=== PATIENT | male | born 1985 | race Caucasian/White ===

== ENCOUNTER 2016-12-12 18:23 | Emergency (ER) ==
[2016-12-12 18:23] VITALS: BMI 19.8
[2016-12-12 18:32] VITALS: BP 114/73; TEMP 98.3
--- NOTE | 2016-12-12 18:33 | ED.PDOC ---
General ED Provider: Dr. RICHMOND KATHLEEN JR Chief Complaint: Weakness Stated Complaint: took b/p last pm due to feeling weak and dizzy--b/p was at 130 /49--states that is too low for him--sx subsided somewhat but returned today-- states was not active physically--feels tired and weak at present--has appt to see dr kelley on saturday has had sharp pains in upper arms. [ End ]98.3 73 20 98 % 114/73 Time Seen by Physician: 18:32 Mode of Arrival: Walk-In Information Source: Patient Exam Limitations: No limitations Primary Care Provider: PIPE KELLEY Nursing and Triage Documentation Reviewed and Agree: No Review of Systems - Review Of Systems Constitutional: Reports: Malaise, Weakness Eyes: Reports: No symptoms Ears, Nose, Mouth, Throat: Reports: No symptoms Respiratory: Reports: No symptoms Cardiac: Reports: No symptoms GI: Reports: No symptoms : Reports: No symptoms Musculoskeletal: Reports: Muscle pain Skin: Reports: No symptoms Neurological: Reports: No symptoms Endocrine: Reports: No symptoms Hematologic/Lymphatic: Reports: No symptoms All Other Systems: Other Past Medical History - Past Medical History Previously Healthy: Yes Endocrine: Reports: None Cardiovascular: Reports: None Respiratory: Reports: None Hematological: Reports: None Gastrointestinal: Reports: None Genitourinary: Reports: None Neuro/Psych: Reports: None Musculoskeletal: Reports: None Cancer: Reports: None - Surgical History General Surgical History: Reports: Orthopedic (RT KNEE SURG) - Family History Family History: Reports: Unknown - Social History Smoking Status: Never smoker Hx Substance Use: No Alcohol Screening: None Physical Exam - Physical Exam Appearance: Well-appearing, Thin Ill-appearing: Mild Pain Distress: Mild Eyes: TED, EOMI, Conjunctiva clear ENT: Ears normal, Nose normal, Oropharynx normal Neck: Supple Respiratory: Airway patent, Breath sounds clear, Breath sounds equal, Respirations nonlabored Cardiovascular: RRR, Pulses normal, No rub, No murmur GI/: Soft, Nontender, No masses, Bowel sounds normal, No Organomegaly Musculoskeletal: Normal strength, ROM intact, No edema, No calf tenderness Skin: Warm, Dry, Normal color Neurological: Sensation intact, Motor intact, Reflexes intact, Cranial nerves intact, Alert, Oriented Psychiatric: Affect appropriate, Mood appropriate, Anxious Interpretation - EKG Interpretation Time of EKG #1: 18:40 Rate: Normal Rhythm: Sinus ST Segment: Other (incomplete RBBB) EKG Comparison: No significant changes (compared to 2013) Critical Care Note - Critical Care Note Total Time (mins): 10 Course - Course Hematology/Chemistry: 12/12/16 18:47 12/12/16 18:47 Orders, Labs, Meds: Lab Review 12/12/16 18:47 WBC 8.96 RBC 4.49 L Hgb 13.8 L Hct 39.2 L MCV 87.3 MCH 30.7 MCHC 35.2 RDW Coeff of Maegan 12.5 Plt Count 262 Immature Gran % (Auto) 0.3 Neut % (Auto) 62.6 Lymph % (Auto) 29.9 Richardson % (Auto) 5.9 Eos % (Auto) 0.9 Baso % (Auto) 0.4 Immature Gran # (Auto) 0.0 Neut # 5.6 Lymph # 2.7 Richardson # 0.5 Eos # 0.1 Baso # 0.0 Sodium 141 Potassium 3.3 L Chloride 105 Carbon Dioxide 23 Anion Gap 16.3 BUN 11 Creatinine 1.32 H Estimated GFR (MDRD) 62.00 BUN/Creatinine Ratio 8.33 Glucose 91 Calcium 9.4 Total Bilirubin 0.75 AST 16 ALT 9 L Alkaline Phosphatase 88 Total Creatine Kinase 66 Troponin I < 0.0100 Total Protein 6.9 Albumin 4.3 Globulin 2.6 Albumin/Globulin Ratio 1.65 Orders Category Date Time Status EKG-(ED ONLY) Stat CARDIO 12/12/16 18:33 Completed CBC W/ AUTO DIFF Stat LAB 12/12/16 18:47 Completed COMPREHENSIVE METABOLIC PANEL Stat LAB 12/12/16 18:47 Completed CREATINE KINASE Stat LAB 12/12/16 18:47 Completed TROPONIN I Stat LAB 12/12/16 18:47 Completed Potassium Chloride [K-Dur] MEDS 12/12/16 19:38 Discontinued 40 meq PO ONCE STA CHEST, 2 VIEWS PA & LAT Stat RADS 12/12/16 18:33 Taken Medications Discontinued Medications Generic Name Dose Route Start Last Admin Trade Name Freq PRN Reason Stop Dose Admin Potassium Chloride 40 meq 12/12/16 19:38 K-Dur PO 12/12/16 19:39 ONCE STA Vital Signs: Temp Pulse Resp BP Pulse Ox 12/12/16 18:23 98.3 F 73 20 114/73 98 Departure - Departure Time of Disposition: 19:42 Disposition: HOME SELF-CARE Discharge Problem: Hypokalemia Instructions: Hypokalemia (ED) Condition: Good Pt referred to PMD for follow-up: Yes Additional Instructions: K Dur 20 MEQ four times a day for four days follow up PMD discuss potassium and weakness Note mild anemia, discuss workup with PMD no evidence systemic disease on evaluation return if worse Prescriptions: Potassium Chloride [K-Dur] 20 meq PO BID #60 tab Allergies/Adverse Reactions: Allergies No Known Allergies Allergy (Verified 12/12/16 18:30) Home Medications: Ambulatory Orders Potassium Chloride [K-Dur] 20 meq PO BID #60 tab 12/12/16
[2016-12-12 18:53] LABS: BASOPHILS % (AUTO) 0.4 % (0.0-3.0); EOSINOPHILS # (AUTO) 0.1 K/ul (0.0-0.7); EOSINOPHILS % (AUTO) 0.9 % (0.0-7.0); HEMATOCRIT 39.2 % (42.0-52.0); HEMOGLOBIN 13.8 g/dl (14.0-18.0); IMMATURE GRANULOCYTE % (AUTO) 0.3 % (0.0-5.0); LYMPHOCYTES # (AUTO) 2.7 K/uL (0.60-3.4); LYMPHOCYTES % (AUTO) 29.9 (10.0-50.0); MEAN CORPUSCULAR HEMOGLOBIN 30.7 pg (27.0-31.0); MEAN CORPUSCULAR HGB CONC 35.2 (31.8-35.4); MEAN CORPUSCULAR VOLUME 87.3 fl (80.0-94.0); MONOCYTES # (AUTO) 0.5 K/uL (0.4-2.0); MONOCYTES % (AUTO) 5.9 (0-10); NEUTROPHILS # (AUTO) 5.6 K/ul (2.0-6.9); NEUTROPHILS % (AUTO) 62.6; PLATELET COUNT 262 10^3/uL (140-440); RED BLOOD COUNT 4.49 10^6/ul (4.70-6.10); WHITE BLOOD COUNT 8.96 K/ul (4.2-10.2)
[2016-12-12 19:17] LABS: ALANINE AMINOTRANSFERASE 9 U/L (12-78); ALBUMIN 4.3 g/dL (3.4-5.0); ALBUMIN/GLOBULIN RATIO 1.65; ALKALINE PHOSPHATASE 88 U/L (50-136); ANION GAP 16.3; ASPARTATE AMINO TRANSFERASE 16 U/L (15-37); BILIRUBIN,TOTAL 0.75 mg/dL (0.00-1.20); BLOOD UREA NITROGEN 11 mg/dL (7-18); BUN/CREATININE RATIO 8.33; CALCIUM 9.4 mg/dL (8.2-10.2); CARBON DIOXIDE 23 mmol/L (21-32); CHLORIDE 105 mmol/L (98-107); CREATINE KINASE 66 U/L; CREATININE 1.32 mg/dL (0.60-1.10); GLUCOSE 91 mg/dL (70-100); POTASSIUM 3.3 mmol/L (3.5-5.1); SODIUM 141 mmol/L (136-145); TOTAL PROTEIN 6.9 g/dL (6.4-8.2)
[2016-12-12] MEDS ORDERED: K-DUR PO STA (19:38)
--- NOTE | 2016-12-12 19:50 | DI ---
EXAM: Chest two views CLINICAL INDICATION: Shortness of breath. COMPARISON: None available. FINDINGS: PA and lateral views of the thorax are provided. The pulmonary parenchyma is clear and there is no pleural abnormality. The cardiomediastinal silhou ette and visualized bony structures are unremarkable. IMPRESSION: Negative chest x-ray.
== END 2016-12-12 20:06 | disposition home or self-care (01) ==
LOC: ED 18:23
DX: E87.6 Hypokalemia (principal); D64.9 Anemia, unspecified; R53.1 Weakness
CPT/HCPCS: 36415; 80053; 82550; 84484; 85025; 93005; 93010; 99283

== ENCOUNTER 2018-05-22 05:11 | Emergency (ER) ==
[2018-05-22 05:21] VITALS: BP 97/56; TEMP 99.6; BMI 19.5
--- NOTE | 2018-05-22 06:10 | ED.PDOC ---
General ED Provider: Dr. YANET GONG Chief Complaint: Fever Stated Complaint: fever two days,body aches and headache,malaise and sporadic cough-dry Time Seen by Physician: 07:00 Mode of Arrival: Walk-In Information Source: Patient Exam Limitations: No limitations Primary Care Provider: PIPE TAVERAS Referred to ED by: Other Nursing and Triage Documentation Reviewed and Agree: Yes Does patient meet sepsis criteria?: No System Inflammatory Response Syndrome: Not Applicable Sepsis Protocol: For patient's 13 years and over: Temp is 96.8 and below OR 101 and greater Pulse >90 BPM Resp >20/minute Acutely Altered Mental Status Are patient's symptoms suggestive of a new infection, such as: -Pneumonia -Skin, Soft Tissue -Endocarditis -UTI -Bone, Joint Infection -Implantable Device -Acute Abdominal Infection -Wound Infection -Meningitis -Blood Stream Catheter Infection -Unknown Respiratory Complaint Exam - Respiratory Complaint/Exam Onset/Duration: two days Symptoms Are: Still present Timing: Constant Initial Severity: Moderate Current Severity: Mild Location: Nose, Throat Character: Reports: Dry cough Aggravating: Reports: Exertion Alleviating: Reports: Upright position Associated Signs and Symptoms: Reports: Increased thirst Related History: Reports: Similar episode History of Healthcare-Acquired Pneumonia: No Related Surgical History: Reports: None Pulmonary Embolism Risk Factors: None Cardiac Risk Factors: Reports: None Pseudomonas Risk Factors: Reports: None Tuberculosis Risk Factors: Reports: None Status Asthmaticus Risk Factors: Reports: None Home Oxygen Use: No Recent Stress Test: No Recent Echo/LV Function: No Current Antibiotic Use: No Current Asthma Medication Use: No Respiratory Distress: None Inadequate Respiratory Effort: No Dysphagia Present: No Differential Diagnoses: Influenza Review of Systems - Review Of Systems Constitutional: Reports: Chills, Fever, Weakness Eyes: Reports: No symptoms Ears, Nose, Mouth, Throat: Reports: No symptoms Respiratory: Reports: No symptoms Cardiac: Reports: No symptoms GI: Reports: No symptoms : Reports: No symptoms Musculoskeletal: Reports: No symptoms Skin: Reports: No symptoms Neurological: Reports: No symptoms Endocrine: Reports: No symptoms Hematologic/Lymphatic: Reports: No symptoms All Other Systems: Reviewed and Negative Past Medical History - Past Medical History Previously Healthy: Yes Endocrine: Reports: None Cardiovascular: Reports: None Respiratory: Reports: None Hematological: Reports: None Gastrointestinal: Reports: None Genitourinary: Reports: None Neuro/Psych: Reports: None Musculoskeletal: Reports: None Cancer: Reports: None - Surgical History General Surgical History: Reports: Orthopedic (RT KNEE SURG) - Family History Family History: Reports: Unknown - Social History Smoking Status: Never smoker, Chews tobacco Hx Substance Use: No Alcohol Screening: Occasionally - Immunizations Tetanus Shot up to Date: Yes Physical Exam - Physical Exam Appearance: Well-appearing Ill-appearing: None Pain Distress: None Eyes: TED ENT: Ears normal Neck: Supple Respiratory: Airway patent Cardiovascular: RRR GI/: Soft Musculoskeletal: Limited strength Skin: Warm, Dry, Normal color Neurological: Sensation intact Re-Evaluation - Re-Evaluation Time of Re-Evaluation: 06:57 Status: Improved Vital Signs Stable: Yes Appearance: NAD Lungs: Clear Skin: Warm and Dry Neuro: Alert and Oriented X3 CV: RRR Critical Care Note - Critical Care Note Total Time (mins): 0 Course - Course Hematology/Chemistry: 05/22/18 06:25 Orders, Labs, Meds: Lab Review 05/22/18 05/22/18 05:20 06:25 WBC 7.18 RBC 4.44 L Hgb 13.3 L Hct 39.5 L MCV 89.0 MCH 30.0 MCHC 33.7 RDW Coeff of Maegan 12.2 Plt Count 231 Immature Gran % (Auto) 0.1 Neut % (Auto) 78.3 Lymph % (Auto) 9.5 L [place] % (Auto) 9.7 Eos % (Auto) 1.8 Baso % (Auto) 0.6 Immature Gran # (Auto) 0.0 Neut # (Auto) 5.6 Lymph # (Auto) 0.7 [place] # (Auto) 0.7 Eos # (Auto) 0.1 Baso # (Auto) 0.0 Influ A Molecular Assay Negative by naat Influ B Molecular Assay Negative by naat Orders Category Date Time Status IV [ED IV/MEDIPORT/POWERPORT] .ONCE EMERGENCY 05/22/18 06:10 Active CBC W/ AUTO DIFF Stat LAB 05/22/18 06:25 Completed FLU A/B MOLECULAR Stat LAB 05/22/18 05:20 Completed MOLECULAR GROUP A STREP Stat LAB 05/22/18 05:00 Completed 0.9 % Sodium Chloride [Saline Flush] MEDS 05/22/18 06:10 Ordered 1 syr IVF PRN PRN Acetaminophen [Tylenol] MEDS 05/22/18 06:14 Discontinued 650 mg PO ONCE STA Sodium Chloride 0.9% [Sodium Chloride] 1,000 ml MEDS 05/22/18 06:10 Active IV BOLUS Medications Generic Name Dose Route Start Last Admin Trade Name Freq PRN Reason Stop Dose Admin Sodium Chloride 1,000 mls @ 1,000 mls/hr 05/22/18 06:10 05/22/18 06:20 Sodium Chloride IV 05/22/18 07:09 1,000 mls/hr BOLUS STA Administration Sodium Chloride 1 syr 05/22/18 06:10 Saline Flush IVF PRN PRN To flush IV Discontinued Medications Generic Name Dose Route Start Last Admin Trade Name Freq PRN Reason Stop Dose Admin Acetaminophen 650 mg 05/22/18 06:14 05/22/18 06:26 Tylenol PO 05/22/18 06:15 650 mg ONCE STA Administration Vital Signs: Temp Pulse Resp BP Pulse Ox 05/22/18 05:11 99.6 F 93 H 18 97/56 L 96 Departure - Departure Time of Disposition: 07:01 Disposition: HOME SELF-CARE Discharge Problem: Viral syndrome Instructions: Viral Syndrome (ED) Condition: Good Pt referred to PMD for follow-up: No (PCP of choice -prn,rest at home,fluids 2 days) IPMP verified?: No Allergies/Adverse Reactions: Allergies No Known Allergies Allergy (Verified 05/22/18 05:18) Home Medications: Ambulatory Orders 1 [Unobtainable] 05/22/18 Disposition Discussed With: Patient
[2018-05-22] MEDS: SODIUM CHLORIDE 1,000 ML IV STA (06:20)
[2018-05-22] MEDS: TYLENOL PO STA (06:26)
== END 2018-05-22 07:13 | disposition home or self-care (01) ==
LOC: ED 05:11
DX: B34.9 Viral infection, unspecified (principal); Z72.0 Tobacco use
CPT/HCPCS: 36415; 85025; 87502; 87651; 96360; 99283

== ENCOUNTER 2018-09-21 11:28 | Emergency (ER) | payer OTHER ==
[2018-09-21 11:37] VITALS: BP 126/80; TEMP 97.3; BMI 20.9
--- NOTE | 2018-09-21 11:47 | ED.PDOC ---
General ED Provider: Dr. KEMAR DUNCAN-ER Chief Complaint: Back Pain Stated Complaint: i twisted my back getting into my truck=--denies any trauma or falls Time Seen by Physician: 11:45 Mode of Arrival: Walk-In Information Source: Patient Exam Limitations: No limitations Primary Care Provider: PIPE KELLEY Nursing and Triage Documentation Reviewed and Agree: Yes Does patient meet sepsis criteria?: No System Inflammatory Response Syndrome: Not Applicable Sepsis Protocol: For patient's 13 years and over: Temp is 96.8 and below OR 101 and greater Pulse >90 BPM Resp >20/minute Acutely Altered Mental Status Are patient's symptoms suggestive of a new infection, such as: -Pneumonia -Skin, Soft Tissue -Endocarditis -UTI -Bone, Joint Infection -Implantable Device -Acute Abdominal Infection -Wound Infection -Meningitis -Blood Stream Catheter Infection -Unknown Musculoskeletal Complaint Exam - Back Pain Complaint/Exam Mechanism of Injury: Reports: No known trauma Onset/Duration: 24 hrs Symptoms Are: Still present Timing: Constant Initial Severity: Mild Current Severity: Moderate Location: Reports: Discrete Character: Reports: Dull, Aching, Spasmodic, Stiffness Aggravating: Reports: Movements, Lifting, Bending, Walking Alleviating: Reports: None Associated Signs and Symptoms: Denies: Swelling, Redness, Bruising, Fever, Weakness, Numbness, Tingling, Abdominal pain, Flank pain, Bladder incontinence, Bowel incontinence, Weight loss, Pain with weight bearing AAA Risk Factors: Reports: None Cauda Equina Risk Factors: Reports: None Epidural Abcess Risk Factors: Reports: None Focal Tenderness: Yes Paraspinal Muscle Tenderness: Yes Paraspinal Muscle Spasm: Yes Scoliosis: No Lordosis: No Kyphosis: No SLR Test: Right Negative, Left Negative Hip Motion Testing Pain: Right Negative, Left Negative Focal Weakness: Present: None Focal Sensory Loss: Present: None Gait: Present: Abnormal Differential Diagnoses: Herniated Disk Review of Systems - Review Of Systems Constitutional: Reports: No symptoms Eyes: Reports: No symptoms Ears, Nose, Mouth, Throat: Reports: No symptoms Respiratory: Reports: No symptoms Cardiac: Reports: No symptoms GI: Reports: No symptoms : Reports: No symptoms Musculoskeletal: Reports: Back pain, Muscle pain Skin: Reports: No symptoms Neurological: Reports: No symptoms Endocrine: Reports: No symptoms Hematologic/Lymphatic: Reports: No symptoms All Other Systems: Reviewed and Negative Past Medical History - Past Medical History Previously Healthy: Yes Endocrine: Reports: None Cardiovascular: Reports: None Respiratory: Reports: None Hematological: Reports: None Gastrointestinal: Reports: None Genitourinary: Reports: None Neuro/Psych: Reports: None Musculoskeletal: Reports: None Cancer: Reports: None - Surgical History General Surgical History: Reports: Orthopedic (RT KNEE SURG) - Family History Family History: Reports: Unknown - Social History Smoking Status: Never smoker, Chews tobacco Hx Substance Use: No Alcohol Screening: Occasionally - Immunizations Tetanus Shot up to Date: Yes Physical Exam - Physical Exam Appearance: Well-appearing, No pain distress, Well-nourished Pain Distress: Moderate Eyes: TED, EOMI, Conjunctiva clear ENT: Ears normal, Nose normal, Oropharynx normal Neck: Supple Respiratory: Airway patent, Breath sounds clear, Breath sounds equal, Respirations nonlabored Cardiovascular: RRR, Pulses normal, No rub, No murmur GI/: Soft, Nontender, No masses, Bowel sounds normal, No Organomegaly Musculoskeletal: Normal strength, ROM intact, No edema, No calf tenderness Skin: Warm, Dry, Normal color Neurological: Sensation intact, Motor intact, Reflexes intact, Cranial nerves intact, Alert, Oriented Psychiatric: Affect appropriate, Mood appropriate Critical Care Note - Critical Care Note Total Time (mins): 0 Course - Course Vital Signs: Temp Pulse Resp BP Pulse Ox 09/21/18 11:28 97.3 F L 67 16 126/80 97 Departure - Departure Time of Disposition: 11:47 Disposition: HOME SELF-CARE Discharge Problem: Sciatica Qualifiers: Laterality: right Qualified Code(s): M54.31 - Sciatica, right side Instructions: Sciatica (ED) Condition: Good Pt referred to PMD for follow-up: Yes IPMP verified?: No Additional Instructions: medrol dose pack, norco 7.5mg q 4hrs prn pain #15----skelaxin 800mg qid #30---f/ u with dr kelley this week if not improving Allergies/Adverse Reactions: Allergies No Known Allergies Allergy (Verified 09/21/18 11:44) Home Medications: Ambulatory Orders 1 [No Reported Medications] 09/21/18 Disposition Discussed With: Patient
== END 2018-09-21 11:53 | disposition home or self-care (01) ==
LOC: ED 11:28
DX: M54.31 Sciatica, right side (principal); Z72.0 Tobacco use
CPT/HCPCS: 99282